=== PATIENT | female | born 1995 | race Caucasian/White ===

== ENCOUNTER 2017-02-04 09:15 | Emergency (ER) | payer OTHER ==
--- NOTE | ~2017-02-04 | CR20 ---
[facility] A Service of [facility] & [facility] RADIOLOGY TEXT RESULTS PATIENT: KAILEE CESAR LOCATION: [facility] : [birth year] UNIT #: [id number] AGE: [address]: America Pettit SEX: F ORDER DR: [id number] [facility] [address] [place], [place] [address] [id number] MR#: [id number] Acc #: [id number] NAME: KAILEE CESAR : 1995 SEX: F STUDY DATE/TIME: 02/04/2017 7:28 UNIT: [facility] ROOM: STUDY DESCRIPTION: CR Ankle Min 3 Views Lt Attending Physician: America Pettit P.A.-C. Ordering Physician: Ed Doctor [id number] [facility] Primary Care Physician: Khai Cross M.D. MEDICAL IMAGING REPORT This report is preliminary unless electronic signature is present EXAM Left ankle series, 02/04/2017 COMPARISON Left foot series, 02/04/2017 HISTORY Pain in the left ankle and foot region for 3 days. Twisted it while getting out of bed. FINDINGS 3 views of the left ankle were obtained. AP, lateral, and oblique projections of the ankle show satisfactory integrity of the joint mortise with a smooth articular surface. There is no identifiable fracture, dislocation, or radiopaque foreign body. IMPRESSION Normal ankle. Dictated by... Clif Masterson M.D. THIS IS AN ELECTRONICALLY VERIFIED REPORT Clif Masterson M.D. at 02/04/2017 3:49 PM CPR/fred TD: 02/04/2017 08:39 JOB #: [id number] MEDICAL IMAGING REPORT Page 1 of 1 COPY
--- NOTE | ~2017-02-04 | CR126 ---
[facility] A Service of [facility] / [facility] RADIOLOGY TEXT RESULTS PATIENT: KAILEE CESAR LOCATION: [facility] : [birth year] UNIT #: [id number] AGE: [address]: America Pettit SEX: F ORDER DR: [id number] [facility] [address] [place], [place] [address] [id number] P MR#: [id number] Acc #: [id number] NAME: KAILEE CESAR : 1995 SEX: F STUDY DATE/TIME: 02/04/2017 7:27 UNIT: [facility] ROOM: STUDY DESCRIPTION: CR Foot Complete Min 3 View Lt Attending Physician: America Pettit P.A.-C. Ordering Physician: Adi Rodas M.D. Primary Care Physician: Khai Cross M.D. MEDICAL IMAGING REPORT This report is preliminary unless electronic signature is present EXAM Left foot series dated 02/04/2017 COMPARISON Left ankle series dated 02/04/2017. HISTORY Pain in the left foot and ankle region for 3 days. Patient twisted it while getting out of bed. FINDINGS 3 views of the left foot were obtained. The tarsal, metatarsal, and phalangeal elements are all anatomically normal in position and alignment. There are no articular defects. No fractures or radiopaque foreign bodies in the soft tissues are apparent. IMPRESSION Normal foot. Dictated by... Clif Masterson M.D. THIS IS AN ELECTRONICALLY VERIFIED REPORT Clif Masterson M.D. at 02/04/2017 3:49 PM CPR/aa TD: 02/04/2017 08:44 JOB #: [id number] MEDICAL IMAGING REPORT [facility] RADIOLOGY TEXT RESULTS PATIENT: KAILEE CESAR LOCATION: [facility] : [birth year] UNIT #: [id number] AGE: [address]: America Pettit SEX: F ORDER DR: Page 1 of 1 COPY
[2017-02-04 09:13] LABS: AMPHETAMINE POS (NEG); BARBITURATES NEG (NEG); BENZODIAZEPINES NEG (NEG); COCAINE NEG (NEG); MARIJUANA NEG (NEG); OPIATES POS (NEG); TRICYCLIC ANTIDEPRESSANTS NEG (NEG); U METHADONE NEG (NEG)
[~2017-02-04 09:15] MED LIST: ABX; AMOXICILLIN500 M1 PO; AURALGAN EAR DR14 ML AS; CORTISPORIN-TC10 ML AS; DEPO-MEDROL20 MG/ML IJ; MUCINEX PO; NO MEDICATIONS; PEN-VEE K PO
[2017-02-04 09:26] LABS: BASOPHIL% 0.6 % (0-2.5); EOSINOPHIL% 0.6 % (0.0-7.0); HEMATOCRIT 35.4 % (35.0-45.0); HEMOGLOBIN 12.1 gm/dL (12.0-16.0); LYMPHOCYTE# 3.1 X10e3 (1.0-3.5); LYMPHOCYTE% 36.2 % (17.0-45.0); MEAN CELL VOLUME 81.1 FL (83-96); MEAN CORPUSCULAR HEMOGLOBIN 27.6 PG (28-34); MEAN CORPUSCULAR HGB CONC 34.1 g/dL (30-36); MEAN PLATELET VOLUME 7.7 FL (6.5-11.5); MONOCYTE# 0.6 X10e3 (0-1.0); MONOCYTE% 6.8 % (3.0-12.0); NEUTROPHIL# 4.7 X10e3 (1.5-7.1); NEUTROPHIL% 55.8 % (40-75); PLATELET COUNT 285 X10e3 (140-420); RED BLOOD COUNT 4.37 X10e (3.90-5.30); RED CELL DISTRIBUTION WIDTH 13.8 % (11.0-15.5); WHITE BLOOD COUNT 8.4 X10e3 (4.0-10.5)
[2017-02-04 09:27] LABS: DIFF IND NO
[2017-02-04 09:47] LABS: BUN/CREATININE RATIO 23.33; CALCIUM SERUM 9.4 mg/dL (8.4-10.2); CREATININE SERUM 0.6 mg/dL (0.6-1.4); GLOM FILT RATE Estimated 128.5 mL/min (>60); POTASSIUM 3.5 mmol/L (3.5-5.1)
== END 2017-02-04 11:42 | disposition home or self-care (01) ==
LOC: CED 09:15
PROVIDERS: Physician Assistant
DX: L03.116 Cellulitis of left lower limb (principal); F17.210 Nicotine dependence, cigarettes, uncomplicated
CPT/HCPCS: 36415; 73610; 73630; 80048; 80307; 83605; 84703; 85025; 85652; 86140; 87040; 96361; 96374; 96375; 99284; J0696; J1885